=== PATIENT | female | born 1995 | race Caucasian/White ===

== ENCOUNTER 2021-05-14 13:52 | Emergency (ER) | payer MEDICARE, OTHER ==
[~2021-05-14 13:52] MED LIST: MACROBID 100 M100 MG PO; OMNICEF 300 MG300 MG PO; TORADOL 10 MG T10 MG PO
[2021-05-14 15:55] LABS: HEMOGLOBIN 12.7 gm/dl (12.3-15.3); RED BLOOD COUNT 3.98 M/UL (4.00-5.10); WHITE BLOOD COUNT 10.7 K/UL (4.5-11.0)
[2021-05-14 16:33] LABS: BUN/CREATININE RATIO 12 (0-10)
[2021-05-14] MEDS ORDERED: PRENATA CHEWAB1 EACH PO (19:47)
== END 2021-05-14 20:00 | disposition home or self-care (01) ==
LOC: ER1 13:52
PROVIDERS: Nurse Practitioner
DX: O99.891 Other specified diseases and conditions complicating pregnancy (principal); R07.89 Other chest pain; O99.331 Smoking (tobacco) complicating pregnancy, first trimester; F17.200 Nicotine dependence, unspecified, uncomplicated; Z3A.01 Less than 8 weeks gestation of pregnancy
CPT/HCPCS: 71045; 76817; 80053; 80307; 81001; 82550; 82553; 84484; 84702; 84703; 85025; 93005; 96374; 99285; J1885

== ENCOUNTER 2021-05-15 22:29 | Emergency (ER) | payer MEDICARE, OTHER ==
[~2021-05-15 22:29] MED LIST changes: +PRENATA CHEWAB1 EACH PO
[2021-05-15 23:24] LABS: RED BLOOD COUNT 3.75 M/UL (4.00-5.10)
[2021-05-15 23:54] LABS: BUN/CREATININE RATIO 13 (0-10)
[2021-05-16] MEDS ORDERED: ZOFRAN ODT 4 MG4 MG SL (00:48)
== END 2021-05-16 02:34 | disposition home or self-care (01) ==
LOC: ER1 22:29
PROVIDERS: Physician Assistant Medical
DX: O21.9 Vomiting of pregnancy, unspecified (principal); O99.891 Other specified diseases and conditions complicating pregnancy; R19.7 Diarrhea, unspecified; O99.341 Other mental disorders complicating pregnancy, first trimester; Z3A.01 Less than 8 weeks gestation of pregnancy
CPT/HCPCS: 80053; 81001; 84439; 84443; 84702; 85025; 96374; 99284; J2405